=== PATIENT | female | born 1980 | race Caucasian/White ===

== ENCOUNTER 2017-02-08 10:00 | Emergency (ER) | payer OTHER ==
--- NOTE | 2017-02-08 10:10 | UCPHY ---
H & P Time Seen by Provider: 02/08/17 10:09 Patient Type: New HPI/ROS: Chief complaint. Abdominal pain HPI. Patient with sudden onset of bilateral flank pain and left lower quadrant pain last night. It was associated with hives and she threw up 1 time. She took a Benadryl for the hives and these have improved No fever. This morning she has some residual discomfort in the left lower quadrant and thinks she may have ruptured ovarian cyst. Her pain is better however this morning. No previous problems with ovarian cysts. She does have a history of endometriosis. No fever, chest discomfort, trouble breathing ROS Constitutional. no fever/chills, no weakness Eyes. no problems with vision ENT. no sore throat, no nasal drainage Cardiovascular. no chest pain Respiratory. no shortness of breath, no cough Abdominal. Left lower quadrant abdominal pain with vomiting x1 . no problems urinating MS. no calf pain/swelling, no neck/back pain, no joint pain Skin. Hives last night Lymph. no swollen glands Neuro. no headache, no dizziness, no difficulty walking or with speech Past Medical/Surgical History: and endometriosis Social History: , nonsmoker, no alcohol Physical Exam: General Appearance: Alert pleasant well-developed female mild distress vital signs are stable Eyes: Pupils equal and round no pallor or injection. ENT, Mouth: Mucous membranes are moist. Respiratory: There are no retractions, lungs are clear to auscultation. Cardiovascular: Regular rate and rhythm. Gastrointestinal: Abdomen is soft with mild tenderness in the left adnexal area. No masses. Normal bowel sounds Neurological: Awake and alert, sensory and motor exams grossly normal. Skin: Slight erythema to face without discrete hives Musculoskeletal: Neck is supple nontender. Extremities symmetrical, full range of motion. Psychiatric: Patient is oriented X 3, there is no agitation. Constitutional: Initial Vital Signs Temperature (C) 37 C 02/08/17 10:16 Heart Rate 72 02/08/17 10:16 Respiratory Rate 16 02/08/17 10:16 Blood Pressure 117/68 02/08/17 10:16 O2 Sat (%) 97 02/08/17 10:16 O2 Delivery Mode Room Air Allergies/Adverse Reactions: Penicillins Allergy (Verified 01/12/14 19:11) Sulfa (Sulfonamide Antibiotics) Allergy (Verified 01/12/14 19:11) Home Medications: Medication Instructions Recorded Christine [place]/Linoleic/Gamoleni 1 tab PO DAILY 01/12/14 [Evening [place] 1,000 mg Sftg] Vit27&Calcium/Iron/FA 1 each PO DAILY 01/12/14 [ Rx 1 Tablet (RX)] Hydrocodone/APAP 5/325 [[place] 1 each PO Q4-6PRN PRN #14 tab 02/08/17 5/325 (*)] Medical Decision Making Procedures: Urinalysis and urine test ED Course/Re-evaluation: We do not have ultrasound here on Friday. I have offered to arrange for the patient to go to the emergency department for an ultrasound. The patient feels that this may be able to wait until Friday as her pain seems to be improving Re-evaluation at 11:05 a.m. and patient is stable. Again she and I discussed ultrasound to confirm diagnosis. I have offered to call either [facility] or [facility] ER to facilitate ultrasound. 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 We discussed that if her pain is worsening or she develops other symptoms including vomiting or fever that we or Emergency Department should see her again over the weekend. She expresses understanding and agreement Differential Diagnosis: Likely this is ovarian cyst. It could be mittelschmerz. I considered ectopic butter test is negative. I considered urinary tract infection and her urine is normal - Data Points Laboratory Results: 02/08/17 02/08/17 10:26 10:25 Urine Color YELLOW Urine Appearance CLEAR Urine pH 7.0 (5.0-7.5) Ur Specific [place] <= 1.005 (1.002-1.030) Urine Protein NEGATIVE (NEGATIVE) Urine Ketones NEGATIVE (NEGATIVE) Urine Blood NEGATIVE (NEGATIVE) Urine Nitrate NEGATIVE (NEGATIVE) Urine Bilirubin NEGATIVE (NEGATIVE) Urine Urobilinogen 0.2 EU EU (0.2-1.0) Ur Leukocyte Esterase NEGATIVE (NEGATIVE) Ur Culture Indicated? NOT INDICATED (NI) Urine Glucose NEGATIVE (NEGATIVE) Urine Test NEGATIVE Departure - Departure Disposition: Home, Routine, Self-Care Clinical Impression: Abdominal pain Qualifiers: Abdominal location: left lower quadrant Qualified Code(s): R10.32 - Left lower quadrant pain Condition: Good Instructions: Acute Abdominal Pain (ED) Additional Instructions: I believe that likely this is ovarian cyst. Ibuprofen 600 mg every 6 hours for discomfort. Hydrocodone if needed for pain not controlled by the ibuprofen. Over the weekend should your symptoms worsen including increased pain, fever, vomiting we or the emergency department should re-evaluate you. Referrals: NONE *PRIMARY CARE P,. [Primary Care Provider] - As per Instructions Karin Jean DO [Doctor of Osteopathy] - 2-3 days, call for appt. Prescriptions: Hydrocodone/APAP 5/325 [[place] 5/325 (*)] 1 each PO Q4-6PRN PRN #14 tab PRN Reason: Pain, Moderate - PQRS PQRS Measurement: 134: Depression screening and followup, PRIME MD-PHQ2 (12 years and older) Over the last 2 weeks, how often have you been bothered by any of the following problems? 1. Feeling down, depressed, or hopeless? 2. Little interest or pleasure in doing things? Patient answered no to both 1 and 2 130: Documentation of medications. Reviewed all patient medications, doses, route and frequency. 226: Do you smoke? No.
[2017-02-08 10:22] VITALS: RESP 16; TEMP 98.6
[2017-02-08 10:33] LABS: COLOR YELLOW; LEUKOCYTE ESTERASE,URINE NEGATIVE (NEGATIVE); NITRITE,URINE NEGATIVE (NEGATIVE)
[2017-02-08 11:30] VITALS: BP 118/74; PULSE 70; O2SAT 96
== END 2017-02-08 11:25 | disposition home or self-care (01) ==
LOC: CED 10:00
DX: R10.32 Left lower quadrant pain (principal)
CPT/HCPCS: 81003-PO; 81025-PO; 99203-PO; G0463-PO

== ENCOUNTER → 2017-02-27 | Outpatient (CLI) | payer OTHER ==
[~2017-02-27] MED LIST: IOPAMIDOL (ISOVUE 370) 100 ML BTL IV ONE
== END ==
LOC: FIMAGING 13:47
PROVIDERS: ATTEND Nurse Practitioner Women's Health
PROC: 0UJ87ZZ Inspection of Fallopian Tube, Via Natural or Artificial Opening (ICD-10-PCS; principal; 2017-02-27)
DX: Z87.42 Personal history of other diseases of the female genital tract (principal)
CPT/HCPCS: Q9967

== ENCOUNTER 2017-11-18 07:05 | Inpatient (IN) | payer OTHER ==
[2017-11-18] MEDS ORDERED: LR 1,000 ML IV PRN (07:34)
[2017-11-18] MEDS ORDERED: EPSOM SALT 454 GM TP PRN (07:34)
[2017-11-18] MEDS ORDERED: TERBUTALINE SULFATE 1 MG/ML VIAL IV PRN (07:34)
[2017-11-18] MEDS ORDERED: IBUPROFEN 600 MG TAB PO PRN (07:34)
[2017-11-18] MEDS ORDERED: OLIVE OIL 118 ML BTL MISC PRN (07:34)
[2017-11-18] MEDS ORDERED: OXYTOCIN 20 UNIT in LR 1,000 ML IV PRN (07:34)
[2017-11-18] MEDS ORDERED: LIDOCAINE 1% 300 MG/30 ML SDV ONE (07:41)
[2017-11-18] MEDS ORDERED: OLIVE OIL 118 ML BTL ONE (07:41)
--- NOTE | 2017-11-18 07:41 | OBPROG ---
Labor Progress Note Assessment/Plan: Assessment:cat 1 fhr pain well managed exam /-1 cephalic soft anterior continuous monitoring tub sterile water injections for pain relief gbs positive allergic pcn clindamycin for coverage Plan:, gbs positive sterile water injections tub for pain rlief continuous monitoring 11/18/17 07:44 Subjective/Intrapartum Course: 11/18/17 07:41 Doing well desires sterile water injections for back pain relief and tubfor pain relief - SVE Dilation (cm): 7, 8 Effacement (%): 90 Station: -1 Membranes: Intact - Contraction Pattern Assessment Current Contraction Pattern: Regular - FHR Assessment Briscoe FHR (bpm): 125 FHR Pattern Variability: Moderate FHR Category: 1 - Physical Exam General Appearance: WD/WN, alert, no apparent distress Respiratory: chest non-tender, lungs clear, normal breath sounds Cardiac/Chest: regular rate, rhythm Abdomen: normal bowel sounds Extremities: normal range of motion, Junito's sign (negative bilaterally) DTR- Lower Extremities: Knee (R): 1+, Knee (L): 1+ (no clonus) Skin: normal color, warm/dry Neuro/Psych: no motor/sensory deficits, alert, normal mood/affect, oriented x 3 ICD10 Worksheet Patient Problems: Problems Problem Status Onset delivery delivered Acute History of asthma Acute Vegetarian Acute
[2017-11-18] MEDS ORDERED: AMMONIA AROMATIC 1 EACH AMP IH ONE (07:42)
[2017-11-18] MEDS ORDERED: TERBUTALINE SULFATE 1 MG/ML VIAL ONE (07:42)
[2017-11-18] MEDS ORDERED: MISOPROSTOL 200 MCG TAB ONE (07:42)
[2017-11-18] MEDS ORDERED: OXYTOCIN 10 UNIT/ML VIAL ONE (07:42)
[2017-11-18] MEDS ORDERED: CLINDAMYCIN 900 MG/DEXTROSE 50 ML IV SCH (08:15)
[2017-11-18 08:17] LABS: PLATELET COUNT 270 10^3/uL (150-400)
--- NOTE | 2017-11-18 08:48 | GHP ---
[f rep st] HISTORY AND PHYSICAL DATE OF ADMISSION: 11/18/2017 HISTORY OF PRESENT ILLNESS: The patient is a 37-year-old 2, para 1, with an EDC of 12/06/2017 who comes in at 38 and 3/7 weeks in labor. On admission, patient is 7, 90, -1, cephalic, soft, anterior. The patient is giselle every 3-5 minutes. The patient states feeling positive movement. Denies leaking of fluid. Denies bloody show. The patient's partner is with her. The patient is GBS positive and will begin antibiotics clindamycin as patient is allergic to penicillin. PAST MEDICAL HISTORY: History of asthma diagnosed at 8 years old. SURGICAL HISTORY: T and A at 7 years old. Kiel teeth extraction. Previous C -section for non-reassuring heart tones. Baby's weight was 5 pounds 4 ounces at 39 and 4/7 weeks. Failed vacuum. FAMILY HISTORY: Noncontributory. SOCIAL HISTORY: Nonsmoker and nondrug user. and lives with their daughter. GYNECOLOGICAL HISTORY: Previous use of OCPs, NuvaRing and IUD. The patient also was diagnosed with endometriosis, advance laparoscopy as well as HSG in 2016, laparoscopy in 2013. for diagnosis. HISTORY: Previous . PHYSICAL EXAMINATION: GENERAL: Patient is awake, alert, oriented x3. LUNGS: Clear bilaterally. ABDOMEN: Bowel sounds are positive in all 4 quadrants. DTRs are 1+ bilaterally. Homans sign is negative bilaterally. LABS: 1. Patient is A positive, antibody negative. RPR is nonreactive. Rubella is immune. Hepatitis is negative. HIV is negative. Parvo immune. Gonorrhea and chlamydia were negative. AFP was negative. Mike was negative. The patient is GBS positive. PLAN OF CARE: 1. The patient is GBS positive. Clindamycin for coverage. 2. . Patient attempting a vaginal delivery. 3. Anesthesia was called as well as Dr. Norma Kraus. The patient was having back pain. Elected to do sterile water injections x4 to help with relief. 4. The patient in the tub at this time is choosing is not to have an epidural for pain relief. Talked about the risks, benefits and alternatives having a vaginal delivery. The patient is aware and at this time chooses to continue with the . /[id number]/MODL MTDD
[2017-11-18] MEDS ORDERED: SIMETHICONE 80 MG TAB CHEW PO PRN (10:54)
[2017-11-18] MEDS ORDERED: HYDROCODONE/APAP 5/325 TAB PO PRN (10:54)
[2017-11-18] MEDS ORDERED: HYDROCORTISONE 0.5% CREAM TP PRN (10:54)
--- NOTE | 2017-11-18 10:59 | OBDEL ---
Info Type: Vaginal () Presentation at Delivery: Vertex L&D Analgesia/Anesthesia Type: None GBS+: Yes Antibiotic Used for + GBS: Clindamycin Intrapartum Medications: Generic Name Dose Route Start Last Admin Trade Name Real PRN Reason Stop Dose Admin Clindamycin Phosphate/Dextrose 50 mls @ 100 mls/hr 11/18/17 08:15 11/18/17 08 :15 Cleocin 900 Mg (Premix) IV 12/18/17 08:14 50 mls Q8HRS LUCÍA Administration Protocol - Hospital Course Intrapartum: 11/18/17 07:41 Doing well desires sterile water injections for back pain relief and tubfor pain relief Indications for Delivery: Spontaneous Labor (Previous c/s) Vaginal Delivery - Delivery Provider Delivery Physician/CNM: Norma Kraus - Labor and Delivery Onset of Contractions Date: 11/18/17 Onset of Contractions Time: 05:00 Onset of Contractions Type: Spontaneous Rupture of Membranes Date: 11/18/17 Rupture of Membranes Time: 08:45 Rupture of Membranes Type: Spontaneous Amniotic Fluid Color: Clear Dilation Complete Date: 11/18/17 Dilation Complete Time: 09:00 Placenta Delivery Date: 11/18/17 Placenta Delivery Time: 10:23 Total Hours of Labor: 5 Laceration: 1st Degree Repair: 3-0, Vicryl, Other (Specify) (L periurethral tear noted - hemostatic) Vaginal Sponge Count Correct: Yes Vaginal Needle Count Correct: Yes Vaginal Sweep Performed: Yes EBL: 350 cc Delivery Events: None Delivery Comment: Uncomplicated Data JOYCE: 11/29/17 Gestational Age: 38 week(s) and 3 day(s) [place] Delivery Date: 11/18/17 Delivery Time: 10:18 Sex of Infant: Female Score (1 Min): 8 Score (5 Min): 9 ICD10 Worksheet Patient Problems: Problems Problem Status Onset Vaginal after () Acute Previous delivery affecting Acute
[2017-11-18] MEDS: IBUPROFEN 600 MG TAB PO PRN ×2 (13:47→21:00)
[2017-11-18] MEDS: PRENATAL VIT 1 EACH TAB PO SCH ×2 (21:44→21:45)
[2017-11-19] MEDS: DOCUSATE SODIUM 100 MG CAP PO PRN ×2 (08:19→20:05)
[2017-11-19] MEDS: IBUPROFEN 600 MG TAB PO PRN ×2 (08:19→20:05)
[2017-11-19] MEDS: PRENATAL VIT 1 EACH TAB PO SCH ×2 (08:21→08:22)
--- NOTE | 2017-11-19 15:08 | OBPP ---
Progress Note Assessment/Plan: Assessment: 37 y/o PPD #1 s/p successful doing well. Plan: support and routine PPC. Anticipate d/c home tomorrow. 11/19/17 15:07 Subjective/ Course: 11/19/17 15:06 Pt is doing well. She has good pain control with Ibuprofen. She is ambulating and voiding without difficulty and has min lochia. Breast feeding well min nipple soreness. Objective: 11/18/17 07:40 Patient ABO/Rh A POSITIVE 11/18/17 07:40 Temp Pulse Resp BP Pulse Ox 36.7 C 74 16 101/61 95 11/19/17 07:55 11/19/17 07:55 11/19/17 07:55 11/19/17 07:55 11/19/17 07:55 Uterine Position/Fundal Height: Umbilicus -2 Uterine Tone: Firm Physical Exam - Physical Exam Neck: non-tender, full range of motion, supple Respiratory: chest non-tender, lungs clear, normal breath sounds Cardiac/Chest: regular rate, rhythm Abdomen: normal bowel sounds Extremities: swelling (no), Junito's sign (neg)
[2017-11-19 21:19] VITALS: TEMP 97.9
--- NOTE | 2017-11-20 07:45 | OBGCSDC ---
General Delivery Information - General Info : 2 Para: 2 Abortions: 0 Type: Vaginal () L&D Analgesia/Anesthesia Type: None Admission Date: 11/18/17 Labs: Patient ABO/Rh A POSITIVE 11/18/17 07:40 Hct 40.6 % (38.0-47.0) 11/18/17 07:40 - Hospital Course Intrapartum: 11/18/17 07:41 Doing well desires sterile water injections for back pain relief and tubfor pain relief : 11/19/17 15:06 Pt is doing well. She has good pain control with Ibuprofen. She is ambulating and voiding without difficulty and has min lochia. Breast feeding well min nipple soreness. 11/20/17 07:43 Pt seen and examined. Doing well with no complaints. Mild cramping. Mod lochia. Pt is OOB, brianna regular diet, voiding and BM x 1. BF without difficulty. Vaginal - Delivery Provider Delivery Physician/CNM: Norma Kraus - Diagnosis Labor: Spontaneous Rupture of Membranes Type: Spontaneous Amniotic Fluid Color: Clear Laceration: 1st Degree Repair: 3-0, Vicryl, Other (Specify) (L periurethral tear noted - hemostatic) Delivery Events: None - Delivery EBL: 350 cc Data JOYCE: 11/29/17 Gestational Age: 38 week(s) and 5 day(s) [place] Delivery Date: 11/18/17 Delivery Time: 10:18 Sex of Infant: Female Score (1 Min): 8 Score (5 Min): 9 Discharge Information - Discharge Information Condition: Good Instruction/Follow Up: Four Weeks, Six Weeks
--- NOTE | 2017-11-20 07:45 | OBPP ---
Progress Note Assessment/Plan: Assessment: s/p PPD # 2 - pt is stable Plan: Plan for d/c home today Instructions reviewed today No RX given Cont PNV, iron, colace Pelvic rest RTC in 4 and 6 weeks 11/20/17 07:42 Subjective/ Course: 11/19/17 15:06 Pt is doing well. She has good pain control with Ibuprofen. She is ambulating and voiding without difficulty and has min lochia. Breast feeding well min nipple soreness. 11/20/17 07:43 Pt seen and examined. Doing well with no complaints. Mild cramping. Mod lochia. Pt is OOB, brianna regular diet, voiding and BM x 1. BF without difficulty. Objective: 11/18/17 07:40 Patient ABO/Rh A POSITIVE 11/18/17 07:40 Temp Pulse Resp BP Pulse Ox 36.6 C 64 16 95/58 L 97 11/19/17 20:00 11/19/17 20:00 11/19/17 20:00 11/19/17 20:00 11/19/17 20:00 Uterine Position/Fundal Height: Umbilicus -2 Uterine Tone: Firm Physical Exam - Physical Exam Respiratory: lungs clear, normal breath sounds Cardiac/Chest: regular rate, rhythm Abdomen: normal bowel sounds, non-tender, soft, flatus (+) Extremities: non-tender, normal inspection Skin: normal color, warm/dry Neuro/Psych: alert, normal mood/affect, oriented x 3
[2017-11-20 09:21] VITALS: BP 100/60; PULSE 70; RESP 17; O2SAT 94
== END 2017-11-20 11:00 | disposition home or self-care (01) | DRG 775 ==
LOC: FLD 07:05 → FOB 11-19 07:24
PROVIDERS: ADMIT Advanced Practice Midwife; ATTEND Obstetrics & Gynecology
DX: O71.82 Other specified trauma to perineum and vulva (principal); O34.211 Maternal care for low transverse scar from previous cesarean delivery; O99.824 Streptococcus B carrier state complicating childbirth; Z3A.38 38 weeks gestation of pregnancy; Z37.0 Single live birth
CPT/HCPCS: J3105